=== PATIENT | female | born 1990 | race Caucasian/White ===

== ENCOUNTER 2016-12-04 13:24 | Emergency (ER) | payer OTHER ==
[2016-12-04 13:28] VITALS: TEMP 98.4
--- NOTE | 2016-12-04 14:06 | EDPHY ---
H & P Stated Complaint: Left ankleo deformity Source: Patient Exam Limitations: No limitations - Personal History Current Tetanus/Diphtheria Vaccine: Yes Current Tetanus Diphtheria and Acellular Pertussis (TDAP): Yes - Medical/Surgical History Hx Asthma: No Hx Chronic Respiratory Disease: No Hx Diabetes: No Hx Cardiac Disease: No Hx Renal Disease: No Hx Cirrhosis: No Hx Alcoholism: No Hx HIV/AIDS: No Hx Splenectomy or Spleen Trauma: No - Social History Smoking Status: Never smoked Time Seen by Provider: 12/04/16 13:30 HPI/ROS: CHIEF COMPLAINT: Left ankle injury HISTORY OF PRESENT ILLNESS: 26-year-old female presents emergency department with a left ankle deformity. Patient was rock climbing today when she got her toe stuck in a foot hold and she hyper plantar flexed her foot. No fall. Patient reports she slid down the rock after this happened, no head strike. Patient was not ambulatory on scene, she did not fall onto her foot, no head strike, no neck pain, no numbness or tingling to this foot, no previous injury to this foot. REVIEW OF SYSTEMS: A comprehensive 10 point review of systems is otherwise negative aside from elements mentioned in the history of present illness. (Shagufta Guo) - Physical Exam Exam: Physical Exam Gen: Alert and Oriented, NAD HEENT: PERRL, moist mucous membranes NECK: no meningismus CV: regular rate and regular rhythm PULM: CTAB, no wheezes ABDOMEN: soft, non tender to palpation, BS present BACK: No CVA tenderness NEURO: Neurologically grossly intact EXTREMITIES: Left ankle with obvious deformity and swelling, tenderness to palpation to lateral and medial ankle, 2+ posterior tibialis, 1+ dorsalis pedis , sensation intact to light touch, foot is dusky and purple, no proximal fibular tenderness, no tenderness to base of 5th metatarsal SKIN: no rash or break in skin on exposed skin PSYCH: answers questions appropriately. (Shagufta Guo) Constitutional: Initial Vital Signs Temperature (C) 36.9 C 12/04/16 13:27 Heart Rate 94 12/04/16 13:27 Respiratory Rate 14 12/04/16 13:27 Blood Pressure 152/94 H 12/04/16 13:27 O2 Sat (%) 96 12/04/16 13:27 O2 Delivery Mode [Post Room Air Procedure 3rd] O2 Delivery Mode [Post Room Air Procedure 2nd] O2 Delivery Mode [Post Non-Rebreather Mask Procedure 1st] O2 Delivery Mode [Procedural Non-Rebreather Mask 3rd] O2 Delivery Mode [Procedural Non-Rebreather Mask 2nd] O2 Delivery Mode [Procedural Non-Rebreather Mask 1st] O2 Delivery Mode [.Immediate Non-Rebreather Mask Pre-Procedure] O2 Delivery Mode Room Air O2 (L/minute) [Post Procedure 15 1st] O2 (L/minute) [Procedural 3rd] 15 O2 (L/minute) [Procedural 2nd] 15 O2 (L/minute) [Procedural 1st] 15 O2 (L/minute) [.Immediate Pre- 15 Procedure] Allergies/Adverse Reactions: Penicillins Allergy (Verified 12/04/16 13:27) Home Medications: Medication Instructions Recorded Hydrocodone/APAP 5/325 [[place] 1 tab PO Q4H PRN #30 tab 12/04/16 5/325] Medical Decision Making - Diagnostics Imaging: Imaging Impressions Ankle X-Ray 12/04/16 13:38 Impression: Complex ankle fracture/dislocation. Results discussed with Dr. Tunde Gonzalez. Extremity CT 12/04/16 14:07 Impression: Trimalleolar fracture variant consisting of a comminuted, impacted fracture involving the anterior articular surface of the distal tibia, nondisplaced fracture through the base of the medial malleolus, and a minimally displaced fracture of the distal fibula. Ankle X-Ray 12/04/16 14:29 Impression: Persistent anterior ankle dislocation. Comminuted distal tibial pilon fractures are again visualized.. Ankle X-Ray 12/04/16 15:26 Impression: Successful reduction of the ankle joint dislocation. Procedures: Procedure: Dislocation reduction. Indication: Dislocation of the foot Risks, benefits, alternatives discussed with the patient. Consent was obtained. The foot was partially reduced using manual traction and manual manipulation. The patient has immediate improved color and foot, dusky color has resolved, pedal pulses present. Patient tolerated the procedure well was given procedural sedation by Dr. Gonzalez and is significantly more comfortable. Post reduction x-ray demonstrates partial reduction of the joint. The procedure was performed by myself and Dr. Gonzalez. A 3 way Ortho Glass splint was applied. After application of the splint, I returned and re-examined the patient. The splint was adequately immobilizing the joint. The patients circulation and sensation were intact distal to the splint. (Shagufta Guo) ED Course/Re-evaluation: Procedure: Conscious sedation. Indication: Left ankle reduction. I was asked by Shagufta Maddox, ANNIE, to perform the sedation. The patient is an appropriate candidate to tolerate procedural sedation. The patient's vitals signs and mental status are appropriate. The risks, benefits and alternatives of the sedation were discussed with the patient. A time out was completed. The patient was sedated with 100mg IV Propofol and 100mg IV Ketamine. The patient was monitored with continuous pulse oximetry, hospital monitor and end tidal CO2. There were no complications and no significant hypoxemia. I performed both the sedation and the procedure. The total time I spent at the bedside during the procedural sedation was 15 minutes. The patient was examined after the procedural sedation and has returned to their pre-sedation baseline with normal vital signs and a normal examination. (Tunde Gonzalez) 1430-Dr. Rodriguez at bedside. 1450-Dr. Rodriguez is doing a hematoma block and will attempt to further reduce the foot. 1545- Pt back from CT. Awaiting results. 1700-patient is back from CT, Dr. Rodriguez is comfortable with the reduction. He placed a splint at bedside, patient was sent out in crutches, she is sent home with a [place] prepack in a prescription for [place]. Patient is given strict return precautions for any neurovascular compromise, pain that is not controlled , any new symptoms or concerns. (Shagufta Guo) Differential Diagnosis: Diagnosis considered but not limited to fracture, dislocation, strain. (Shagufta Guo) - Data Points Medications Given: Discontinued Medications Hydromorphone HCl (Dilaudid) 0.5 mg IVP EDNOW ONE Stop: 12/04/16 14:24 Last Admin: 12/04/16 14:23 Dose: 0.5 mg Ketamine HCl (Ketamine) 100 mg IVP EDNOW ONE Stop: 12/04/16 14:15 Last Admin: 12/04/16 14:14 Dose: 100 mg Propofol (Diprivan) 100 mg IVP EDNOW ONE Stop: 12/04/16 14:15 Last Admin: 12/04/16 15:48 Dose: 100 mg Departure - Departure Disposition: Home, Routine, Self-Care Clinical Impression: Trimalleolar fracture of ankle, closed Qualifiers: Encounter type: initial encounter Laterality: left Qualified Code(s): S82.852A - Displaced trimalleolar fracture of left lower leg, initial encounter for closed fracture Condition: Good Instructions: Hydrocodone/Acetaminophen (By mouth), Ankle Fracture (ED) Additional Instructions: Rest, ice your leg as much as possible until your follow-up appointment with Dr. Rodriguez. Keep splint in place. Take 600 mg of ibuprofen every 8 hours with food as needed for pain, take 1-2 [place] every 4-6 hours as needed for severe pain. Return to the emergency department for any numbness or tingling in your foot, pain that is not controlled, any new symptoms or concerns. Follow up with Dr. Rodriguez on Tuesday, call Tuesday to schedule this appointment. Referrals: Amaury Rodriguez MD [Medical Doctor] - As per Instructions (Orthopedist on-call) Prescriptions: Hydrocodone/APAP 5/325 [[place] 5/325] 1 tab PO Q4H PRN #30 tab PRN Reason: Pain, Moderate
[2016-12-04] MEDS ORDERED: KETAMINE 100 MG/10 ML SYR IVP ONE ×2 (14:11→14:14)
[2016-12-04] MEDS ORDERED: PROPOFOL 200 MG/20 ML VIAL ONE (14:11)
[2016-12-04] MEDS ORDERED: PROPOFOL 200 MG/20 ML VIAL IVP ONE (14:14)
[2016-12-04] MEDS ORDERED: HYDROmorphONE/DILAUDID 1 MG/ML SYR ONE (14:23)
[2016-12-04] MEDS ORDERED: HYDROmorphONE/DILAUDID 1 MG/ML SYR IVP ONE (14:23)
[2016-12-04 16:04] VITALS: O2SAT 96
[2016-12-04] MEDS ORDERED: HYDROCOD/APAP 5/325 PREPACK#6 BTL TAKEHOME ONE (17:10)
--- NOTE | 2016-12-04 17:23 | PDCONSULT ---
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 Her foot dorsiflexed violently and anteriorly. She presented to the ED and had an absent DP pulse. An urgent sedation and reduction attempt was made by the ED. The alignment improved considerably and pulse was restored. I then met the patient. We obtained plain films and I wished to improve the reduction and get the talus out to length under the tibia in the sagittal plane. We placed a hematoma block after sterile prep to the skin and a reduction was performed under fluoroscopy. 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 Nonsmoker All: PCN PE: AxOx3. Unlabored LLE: + edema. No open wounds. Significantly diminished DP sensation. Slightly diminished Plantar sensation. Intact SP sense. 2+ DP pulse. unstable ankle Xray: anterior malleolus, distal fibula, and medial malleolus fractures. posterior plafond intact. Post reduction CT: punch anterior plafond involvement, talus minimally subluxed anteriorly but out to length in sagittal plane. centered in coronal plane. small chip posterior to talus A/P 26yF with Left ankle pilon fracture - out to length. Significant edema. - plan to d/c home with strict NWB LLE, elevation (place pillows behind calf and not heel) - discussed risks of compartment syndrome, neuropraxia, soft tissue ulcers, loss of reduction - We'll see her this tuesday and get films in her splint to ensure that she is still out to length. If so, we'll likely wait another week to optimize soft tissue swelling before final fixation. - The patient understands and agrees with this plan.
[2016-12-04 17:40] VITALS: BP 154/92; PULSE 94; RESP 17
== END 2016-12-04 17:40 | disposition home or self-care (01) ==
PROC: 0SSGXZZ Reposition Left Ankle Joint, External Approach (ICD-10-PCS; principal; 2016-12-04)
DX: S82.852A Displaced trimalleolar fracture of left lower leg, initial encounter for closed fracture (principal); S93.05XA Dislocation of left ankle joint, initial encounter; X58.XXXA Exposure to other specified factors, initial encounter; Y99.8 Other external cause status; Y93.31 Activity, mountain climbing, rock climbing and wall climbing
CPT/HCPCS: 96374; J1170; J2704

== ENCOUNTER 2016-12-04 21:19 | Emergency (ER) | payer OTHER ==
[2016-12-04 21:30] VITALS: RESP 16
[2016-12-04 23:06] VITALS: BP 125/95; PULSE 72; TEMP 97.7; O2SAT 96
--- NOTE | 2016-12-05 06:13 | PDCONSULT ---
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 I distinctly remembered that she had sensation diminished but present under the hallux, and that was concerning. Given her known DP neuropraxia, I was also worried about whether the splint was impinging too hard on her foot dorsum where she was numb. I requested that she return to the ER for examination of the splint and her foot. She does not recall heel sensation that distinctly when she presented initially to [facility] [place] ER the 1st time, but she does remember sensation (potentially diminished) in the plantar foot. 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 Nonsmoker All: PCN PE: AxOx3. Unlabored LLE: Splint intact and dry. Unwrapping FAYE, there is a mid arch depression of plaster pushing into her arch just behind the medial ball of her foot. Sensation intact but diminished (as before) proximal to this point. Distal to this point, there is nearly no sensation. Lateral plantar foot sensation intact and as before. Still no DP sensation. Dorsal foot covered with webril but only a small plantar lateral dorsal segment closer to the ankle that might cross into main DP sensory zone. plate loosened and pt feels finger touch under the plate and finger easily squeezes below plate without any point prominences Small 1cm hole made in heel plaster. Pt feels touch through the hole, but is diminished. some focal calf pain near where the fulcrum of the step applied (with padding) during reduction maneuver to resist tibial posterior translation while a posterior directed load had been applied to the foot 2+ DP pulse appreciated on foot dorsum. BCR x5 Xray: post splint adjustment: anterior malleolus, distal fibula, and medial malleolus fractures. posterior plafond intact. talus under tibia and out to length. plantarflexion of ankle A/P 26yF with Left ankle pilon fracture and medial plantar nerve palsy 2/2 splint point pressure - We adjusted the splint by loosening/removing the plantarmedial fold that was digging into her plantar foot behind the 1st MTP ball of foot. We discussed how it appears that the fold likely caused/exacerbated her distal medial plantar nerve palsy which explains the focal numbness that developed under her hallux and 2nd/3rd toes and why her 4th/5th plantar sensation is unchanged. I think the fold is a result of our service trainer while maintaining the reduction of the foot earlier. - We were somewhat relieved to find no dorsal splint prominences pushing into the DP neuropathic zone above her foot - the DP being out since presentation - plan to d/c home with strict NWB LLE, elevation (place pillows behind calf and not heel) - We did remold the posterior plate of the splint to be less flat and to contour with her calf more. But we counseled that the focal soreness at the maximal fulcrum point would probably take some time to resolve - While we had discussed the possibility of taking her to the OR for an external fixator when she called and we had not examined her; finding the focal offending problem with the splint and the corresponding localized nature of her numbness complaint, we do not think she has to get an external fixator to maintain her reduction. She would also like to avoid such a surgery if it is not needed at this time. - Again, we discussed risks of compartment syndrome, neuropraxia, soft tissue ulcers, loss of reduction - We still want to see her this tuesday and get films in her splint to ensure that she is still out to length. We will also re-examine her swelling then. - Again, we encouraged her to call with any concerns or new developments and appreciate her willingness to come back to the ER for re-examination tonight. - The patient understands and agrees with this plan.
== END 2016-12-04 23:47 | disposition home or self-care (01) ==
DX: Z53.21 Procedure and treatment not carried out due to patient leaving prior to being seen by health care provider (principal)